=== PATIENT | female | born 1980 | race Caucasian/White ===

== ENCOUNTER 2017-01-02 21:55 | Emergency (ER) | payer SELFPAY ==
[2017-01-02] MEDS ORDERED: ONDANSETRON 4 MG TAB.RAPDIS PO ONE (22:32)
--- NOTE | 2017-01-02 22:32 | ERNOTE ---
Headache ER HPI - Narrative Date of Service: 01/02/17 - General Presenting Symptoms: headache Time Seen by Provider: 01/02/17 22:18 Source: patient - drove patient to ED for headache treatment - Immun/Allergies/Home Medications Immunizations: IMMUNIZATION HX Immunizations Up to Date No History of Influenza Vaccine No Hx Pneumococcal Vaccination No Allergies/Adverse Reactions: Allergies No Known Allergies Allergy (Verified 01/02/17 22:09) Home Medications: HOME MEDICATIONS Aspirin/Acetaminophen/Caffeine [Excedrin Extra Strength] 1 tab PO PRN PRN [Last Taken 01/02/17] Ketorolac Tromethamine 10 mg PO TID #15 tablet 01/02/17 [Last Taken Unknown] - Pain Pain Score: 9 - History of Present Illness Narrative: Patient states she usually does not have headaches. Last one was 3 yrs ago. Pain level is 8 / 10 Date (Duration): 01/02/17 Time (Timing): 08:00 Activity at onset: other - nothing out of the ordinary Timing of Headache: abrupt, other - patient is getting over sinus infection Context Headache: Present: new onset. Absent: [place] exposure, tick bite, meningitis exposure, recent head injury < 24 hrs ago, recent travel-outside [place] Quality: Present: pressure, stabbing Severity Maximum: Present: severe Severity-Currently: Present: moderate - no help with acetaminophen at 4 pm today Headache frequency: Present: no recent headache, occasional headaches Modifying Factors - (Improves): Reports: other - nothing Modifying Factors - (Worsens): Reports: exposure to light, other - no known triggers Associated Symptoms: Reports: nausea, other - pain location bilateral temples. . Denies: vomiting, facial pain Prior Treament: Reports: similar symptoms before - about 3 yrs ago Review of Systems - Review of Systems Constitutional: Present: no symptoms reported, other - just got over her sinus infection, knows she has allergies. EYE: Present: no symptoms reported ENT: Present: no symptoms reported Respiratory: Present: no symptoms reported Cardiology: Present: no symptoms reported Gastrointestinal/Abdominal: Present: no symptoms reported Genitourinary: Present: no symptoms reported Musculoskeletal: Present: no symptoms reported Skin: Present: no symptoms reported Neurological: Present: no symptoms reported, other - photophobia Endocrine: Present: no symptoms reported Hematologic/Lymphatic: Present: no symptoms reported Psych: Present: no symptoms reported All Other Systems: All systems neg except as marked - Patient's Past Medical History Patient History - Medical: GERD, Migraines, UTI'S, Other Patient History - Cardiac/Respiratory: No pertinent hx Patient History - Cancer: No Hx of Cancer Patient History - Surgical Procedures: Colonoscopy, , Other Patient History - Other: None LMP (females 10-50): last week LMP (Calendar): 06/23/16 - Social History Living Situations: home Psych History: No pertinent hx Smoking Status: Former smoker Alcohol Use: occasionally Drug Use: none - Immunizations Immunizations Up to Date: No Hx Pneumococcal Vaccination: No History of Influenza Vaccine: No Physical Exam - Physical Exam General Appearance: Present: wd/wn Eye Exam: Normal inspection: bilateral, PERRL: bilateral, EOMI: bilateral Ears, Nose, Throat: Present: normal ENT inspection Neck: Present: normal inspection, nontender Respiratory: Present: no respiratory distress, normal breath sounds, no accessory muscle use, chest nontender, lungs clear Cardiovascular/Chest: Present: regular rate, rhythm, no murmur, normal peripheral pulses Peripheral Pulses: N=norm/S=strong/W=weak/B=bound/A=absent: Carotid (R): Normal , Carotid (L): Normal Gastrointestinal/Abdominal: Present: normal bowel sounds, nontender, nondistended, soft, no organomegaly Rectal Exam: Present: deferred Back Exam: Present: normal inspection, normal range of motion, no CVA tenderness , no vertebral tenderness Extremity Exam: Present: normal inspection, non-tender, normal range of motion, no edema Neurological Exam: Present: alert, oriented, normal mood/affect, no motor/ sensory deficits Skin Exam: Present: normal color, warm/dry Lymphatic Exam: Present: no adenopathy ED Progress - Vital Signs Patient's Vital Signs:: I have reviewed the patient's vital signs. Vital Signs: Vital Signs 01/02/17 22:03 Temperature 36.2 C L Pulse Rate 76 Respiratory 18 Rate Blood Pressure 123/73 O2 Sat by Pulse 99 Oximetry - Progress/Reassessment Chief Complaint: Headache Progress:: Pain free at discharge - patient rady for discharge. Plan - Plan Plan: Patient is pain free now, stable for discharge to home Departure Clinical Impression: Temporal headache - Departure Disposition: Home self-care Condition: Good Instructions: Tension Headache, [id number] Additional Instructions: Pharmacy called ketoroloac is not covered will offer a smaller amount of medicaton # 5 if patient wants. Referrals: Sarah Dubois FNP [Primary Care Provider] - Prescriptions: Ketorolac Tromethamine 10 mg PO TID #15 tablet
[2017-01-02] MEDS ORDERED: KETOROLAC TROMETHAMINE 60 MG/2 ML VIAL IM ONE ×2 (22:34→22:35)
[2017-01-02] MEDS ORDERED: ONDANSETRON 4 MG TAB.RAPDIS ONE (22:35)
--- OUTSIDE RECORDS SUMMARY | 2017-01-02 22:36 | XMS REPORT | Continuity of Care Document ---
:1980 Author Organization [facility] ([facility]) Address [address] [place] [address] Phone [phone] Care Team Providers Name Role Phone Marina Dial Primary Care Provider [phone] Source Comments This disclosure is being made pursuant to the Care Everywhere program, applicable federal and state laws, and may not contain all informaitonavailable regarding this patient.[facility] ([facility]) Active Allergies and Adverse Reactions Not on File Current Medications Not on file Active Problems Not on file Social History Tobacco Use Types Packs/Day Years Used Date Never Assessed Last Filed Vital Signs Vital Sign Reading Time Taken Blood Pressure 121/69 03/21/2011 10:36 AM CDT Pulse 81 03/21/2011 10:36 AM CDT Temperature 35.6 C (96.1 F) 03/21/2011 10:36 AM CDT Respiratory Rate 18 03/21/2011 10:36 AM CDT Height - - Weight 67.132 kg (148 lb) 03/21/2011 10:36 AM CDT Body Mass Index - - Oxygen Saturation 98% 03/21/2011 10:36 AM CDT Plan of Care Health Maintenance Due Date Last Done Comments Hepatitis B Vaccine (1 of 3 - Primary Series) 1980 Tdap Vaccine 1992 Lipid Disorder Screening 1999 MMR Vaccine 1999 Td Vaccine 1999 Varicella Vaccine (1 of 2 - Adult - No Evidence of 1999 Immunity) Cervical Cancer Screening 2011 Influenza Vaccine: Seasonal (#1) 04/28/2016 Results from Last 3 Months Not on file
[2017-01-02 23:45] VITALS: BP 103/58
== END 2017-01-02 23:47 | disposition home or self-care (01) ==
LOC: ER 21:55
DX: G44.009 Cluster headache syndrome, unspecified, not intractable (principal); Z87.440 Personal history of urinary (tract) infections; Z87.891 Personal history of nicotine dependence

== ENCOUNTER 2017-02-04 08:48 | Emergency (ER) | payer SELFPAY ==
[2017-02-04 08:56] VITALS: BP 96/61
[2017-02-04 09:13] LABS: Urine Bacteria 4+; Urine RBC >50 /hpf (0-5); Urine WBC >50 /hpf (0-5)
--- NOTE | 2017-02-04 09:14 | ERNOTE ---
ER Female HPI Date of Service: 02/04/17 Stated Complaint: UTI Time Seen by Provider: 02/04/17 09:11 Source: patient Immunizations: IMMUNIZATION HX Immunizations Up to Date Yes History of Influenza Vaccine No Hx Pneumococcal Vaccination No Allergies/Adverse Reactions: Allergies No Known Allergies Allergy (Verified 02/04/17 08:58) Home Medications: HOME MEDICATIONS Sulfamethoxazole/Trimethoprim [Bactrim Ds] 1 tab PO BID #20 tab 02/04/17 [Last Taken Unknown] - History of Present Illness Narrative: PT C/O UTI SX WITH FREQUENCY AND DYSURIA. SHE DID TRY PYRIDIUM AT HOME ALREADYWITH NO HELP. NO FEVER, CHILLS, NAUSEA AND VOMITING OR BACK PAIN. SHE STATES IT JUST STARTED ABOUT 0400 TODAY. SHE HAS HAD UTI BEFORE BUT NO HX OF KIDNEY PROBLEMS. STATES SHE IS NOT AND HAS NO OTHER MEDICAL PROBLEMS. Review of Systems - Review of Systems Constitutional: Present: See HPI Genitourinary: Present: See HPI, frequency, pain, dysuria All Other Systems: All systems neg except as marked - Patient's Past Medical History Patient History - Medical: GERD, Migraines, UTI'S, Other Patient History - Cardiac/Respiratory: No pertinent hx Patient History - Cancer: No Hx of Cancer Patient History - Surgical Procedures: Colonoscopy, , Other Patient History - Other: None LMP (Calendar): 06/23/16 - Social History Living Situations: home Psych History: No pertinent hx Smoking Status: Never smoker Alcohol Use: occasionally Drug Use: none - Immunizations Immunizations Up to Date: Yes Hx Pneumococcal Vaccination: No History of Influenza Vaccine: No Physical Exam - Physical Exam General Appearance: Present: wd/wn, alert, mild distress Respiratory: Present: no respiratory distress, normal breath sounds, no accessory muscle use, lungs clear Cardiovascular/Chest: Present: regular rate, rhythm, no murmur Gastrointestinal/Abdominal: Present: normal bowel sounds, nontender Back Exam: Present: normal inspection, no CVA tenderness Neurological Exam: Present: alert, oriented ED Progress - Results and Orders Patient's Lab Results:: I have reviewed the patient's lab results. Results and Orders: URINE POSITIVE FOR BACTERIA, RBC AND WBC. CULTURE IS PENDING. - Vital Signs Patient's Vital Signs:: I have reviewed the patient's vital signs. Vital Signs: Vital Signs 02/04/17 08:53 Temperature 36.2 C L Pulse Rate 68 Respiratory 18 Rate Blood Pressure 96/61 O2 Sat by Pulse 99 Oximetry - Progress/Reassessment Chief Complaint: Genitourinary Problem Departure Clinical Impression: UTI (lower urinary tract infection) - Departure Disposition: Home Follow Up Needed Condition: Good Instructions: Urinary Tract Infection, Adult, [id number] Referrals: Sarah Dubois FNP [Primary Care Provider] - Prescriptions: Sulfamethoxazole/Trimethoprim [Bactrim Ds] 1 tab PO BID #20 tab
--- OUTSIDE RECORDS SUMMARY | 2017-02-04 09:31 | XMS REPORT | Continuity of Care Document ---
:1980 Author Organization [facility] ([facility]) Address [address] [place] [address] Phone [phone] Care Team Providers Name Role Phone Marina Dial Primary Care Provider [phone] Source Comments This disclosure is being made pursuant to the Care Everywhere program, applicable federal and state laws, and may not contain all informaitonavailable regarding this patient.[facility] ([facility]) Active Allergies and Adverse Reactions Not on [...]
== END 2017-02-04 09:24 | disposition home or self-care (01) ==
LOC: ER 08:48
DX: N39.0 Urinary tract infection, site not specified (principal)

== ENCOUNTER 2017-03-18 14:23 | Emergency (ER) | payer SELFPAY ==
[2017-03-18 15:07] VITALS: BP 114/67
--- NOTE | 2017-03-18 16:06 | ERNOTE ---
Date of Service: 03/18/17 Time Seen by Provider: 03/18/17 15:26 Stated Complaint: CONGESTION Presenting Symptoms:: other - sinus congestion Source: patient Exam Limitations: no limitations Immunizations: IMMUNIZATION HX Immunizations Up to Date Yes History of Influenza Vaccine No Hx Pneumococcal Vaccination No Allergies/Adverse Reactions: Allergies No Known Allergies Allergy (Verified 03/18/17 15:07) Home Medications: HOME MEDICATIONS Sulfamethoxazole/Trimethoprim [Bactrim Ds] 1 tab PO BID #28 tab 03/18/17 [Last Taken Unknown] - History of Present Ilness Narrative: Pt. comes in with C/o L facial pain that radiates to her L neck and L upper chest for three days. Pt. states that she has had sinus congestion with green mucus for three weeks. Pt. denies any fevers, SOB, cardiac chest pain, NVD, abd. pain, alleviaitng factors, aggravating factors or prehospital treatment. Review of Systems - Review of Systems Constitutional: Present: no symptoms reported. Absent: recent illness, fever, chills, weakness, fatigue EYE: Present: no symptoms reported ENT: Present: nose pain, nose congestion, nasal drainage Respiratory: Present: no symptoms reported. Absent: shortness of breath, cough , wheezing Cardiology: Present: no symptoms reported. Absent: chest pain, palpitations, edema Gastrointestinal/Abdominal: Present: no symptoms reported. Absent: nausea, vomiting, diarrhea, abdominal pain Genitourinary: Present: no symptoms reported Musculoskeletal: Present: no symptoms reported. Absent: back pain, joint pain Skin: Present: no symptoms reported Neurological: Present: no symptoms reported Endocrine: Present: no symptoms reported All Other Systems: All systems neg except as marked - Patient's Past Medical History Patient History - Medical: GERD, Migraines, UTI'S Patient History - Cardiac/Respiratory: No pertinent hx Patient History - Cancer: No Hx of Cancer Patient History - Surgical Procedures: Colonoscopy, , Other Patient History - Other: None LMP (Calendar): 06/23/16 - Social History Living Situations: home Psych History: No pertinent hx Smoking Status: Never smoker Alcohol Use: occasionally Drug Use: none - Immunizations Immunizations Up to Date: Yes Hx Pneumococcal Vaccination: No History of Influenza Vaccine: No Physical Exam - Physical Exam General Appearance: Present: wd/wn, alert, no apparent distress Eye Exam: Normal inspection: bilateral, PERRL: bilateral, EOMI: bilateral Ears, Nose, Throat: Present: sinus pain/drainage - L maxillary Neck: Present: lymphadenopathy (L) - supraclavicular, submandibular, anterior cervical Respiratory: Present: no respiratory distress, normal breath sounds, no accessory muscle use, lungs clear, chest tenderness - supraclavicular nodes Cardiovascular/Chest: Present: regular rate, rhythm, no murmur, normal peripheral pulses Gastrointestinal/Abdominal: Present: normal bowel sounds, nontender, nondistended, soft, no organomegaly Back Exam: Present: normal inspection Extremity Exam: Present: normal inspection Skin Exam: Present: normal color, warm/dry. Absent: pallor, skin rash ED Progress - Vital Signs Patient's Vital Signs:: I have reviewed the patient's vital signs. Vital Signs: Vital Signs 03/18/17 15:03 Temperature 36.8 C Pulse Rate 78 Respiratory 14 Rate Blood Pressure 114/67 O2 Sat by Pulse 99 Oximetry - Progress/Reassessment Chief Complaint: Upper Respiratory Symptoms Departure - Departure Clinical Impression: Sinusitis Qualifiers: Sinusitis location: maxillary Chronicity: acute Recurrence: non-recurrent Qualified Code(s): J01.00 - Acute maxillary sinusitis, unspecified Disposition: Home self-care Condition: Good Instructions: Sinusitis, Adult, [id number] Additional Instructions: Please follow up with primary provider in 2-3 days. Referrals: Sarah Dubois FNP [Primary Care Provider] - Prescriptions: Sulfamethoxazole/Trimethoprim [Bactrim Ds] 1 tab PO BID #28 tab
== END 2017-03-18 16:11 | disposition home or self-care (01) ==
LOC: ER 14:23
DX: J01.00 Acute maxillary sinusitis, unspecified (principal)